=== PATIENT | female | born 1980 | race Caucasian/White ===

== ENCOUNTER → 2024-10-23 14:53 | Outpatient (REF) | payer BC, SELFPAY | LOC: MRI 3T 14:53 | PROVIDERS: ATTENDING PHYSICIAN Psychiatry & Neurology Neurology; FAMILY PHYSICIAN Registered Nurse | DX: M54.2 Cervicalgia (principal) | CPT/HCPCS: 70547 ==

== ENCOUNTER → 2025-01-07 11:50 | Outpatient (REF) | payer BC, SELFPAY | LOC: WDC 11:50 | PROVIDERS: ATTENDING PHYSICIAN Nurse Practitioner Adult Health | DX: Z12.31 Encounter for screening mammogram for malignant neoplasm of breast (principal) | CPT/HCPCS: 77063; 77067 ==

== ENCOUNTER → 2025-09-16 12:40 | Outpatient (REF) | payer BC, SELFPAY | LOC: RAD 12:40 | PROVIDERS: ATTENDING PHYSICIAN Registered Nurse | DX: M79.89 Other specified soft tissue disorders (principal) | CPT/HCPCS: 76882 ==

== ENCOUNTER → 2025-09-17 12:53 | Outpatient (REF) | payer BC, SELFPAY | LOC: RAD 12:53 | PROVIDERS: ATTENDING PHYSICIAN Registered Nurse | DX: M79.89 Other specified soft tissue disorders (principal) | CPT/HCPCS: 73060; 73080 ==